=== PATIENT | male | born 1965 ===

== ENCOUNTER 2019-02-05 18:57 | Emergency (ER) | payer OTHER ==
--- NOTE | 2019-02-05 19:44 | ER Document Report ---
ED Medical Screen (RME) - General Chief Complaint: General Weakness Stated Complaint: SLOW HEART RATE Time Seen by Provider: 02/05/19 19:36 Primary Care Provider: MARY GRACIA MD [Primary Care Provider] - Follow up as needed Mode of Arrival: Ambulatory Information source: Patient Notes: 53-year-old male presents emergency department with complaints of feeling extrem shelia tired. Also reports low heart rate. Patient reports his heart rate is always low. Reports he has a cardiac history of one stent placement after an LAD blockage when he was 38 years old. Patient reports he has been tired since Monday. His chest pain shortness of breath. Denies fever vomiting diarrhea. I have greeted and performed a rapid initial assessment of this patient. A comprehensive ED assessment and evaluation of the patient, analysis of test results and completion of the medical decision making process will be conducted by additional ED providers. Dictation of this chart was performed using voice recognition software; therefore, there may be some unintended grammatical errors. TRAVEL OUTSIDE OF THE [place] IN LAST 30 DAYS: No - Related Data Allergies/Adverse Reactions: No Known Allergies Allergy (Unverified 02/05/19 19:38) Past Medical History - Social History Chew tobacco use (# tins/day): No Frequency of alcohol use: None Drug Abuse: None Physical Exam - Vital signs Vitals: Temp Pulse Resp BP Pulse Ox 97.9 F 52 L 16 149/81 H 100 02/05/19 19:21 02/05/19 19:21 02/05/19 19:21 02/05/19 19:21 02/05/19 19:21 Course - Vital Signs Vital signs: Temp Pulse Resp BP Pulse Ox 97.9 F 52 L 16 149/81 H 100 02/05/19 19:21 02/05/19 19:21 02/05/19 19:21 02/05/19 19:21 02/05/19 19:21 Doctor's Discharge - Discharge Referrals: MARY GRACIA MD [Primary Care Provider] - Follow up as needed
--- NOTE | 2019-02-05 20:19 | RADIOLOGY REPORT (SQ) ---
XR CHEST 2 VIEWS CLINICAL STATEMENT: low heart rate COMPARISON: None FINDINGS: Cardiomediastinal silhouette is within normal limits. There is no focal lung consolidation or pleural effusion. No evidence of pulmonary edema or pneumothorax. IMPRESSION: No acute cardiopulmonary disease.
[2019-02-05 20:49] LABS: ABSOLUTE EOSINOPHILS # (AUTO) 0.2 10^3/uL (0.0-0.6); ABSOLUTE LYMPHOCYTES (AUTO) 1.9 10^3/uL (0.5-4.7); ABSOLUTE MONOCYTES (AUTO) 0.7 10^3/uL (0.1-1.4); ABSOLUTE NEUT (AUTO) 3.1 10^3/uL (1.7-8.2); BASOPHILS % (AUTO) 0.8 % (0-2); EOSINOPHILS % (AUTO) 3.5 % (0-6); HEMATOCRIT 43.2 % (37.9-51.0); HEMOGLOBIN 14.8 g/dL (13.5-17.0); LYMPHOCYTES % (AUTO) 32.6 % (13-45); MEAN CORPUSCULAR HEMOGLOBIN 29.2 pg (27.0-33.4); MEAN CORPUSCULAR HGB CONC 34.2 g/dL (32.0-36.0); MEAN CORPUSCULAR VOLUME 85 fl (80-97); PLATELET COUNT 174 10^3/uL (150-450); RED BLOOD COUNT 5.06 10^6/uL (4.35-5.55); RED CELL DISTRIBUTION WIDTH 13.5 % (11.5-14.0); SEGMENTED NEUTROPHILS % (AUTO) 52.1 % (42-78); TOTAL CELLS COUNTED % (AUTO) 100 %; WHITE BLOOD COUNT 5.9 10^3/uL (4.0-10.5)
[2019-02-05 21:06] LABS: ALBUMIN 4.3 g/dL (3.5-5.0); ALKALINE PHOSPHATASE 60 U/L (38-126); ANION GAP 10 (5-19); ASPARTATE AMINO TRANSFERASE 29 U/L (17-59); BILIRUBIN,DIRECT 0.2 mg/dL (0.0-0.4); BILIRUBIN,TOTAL 0.7 mg/dL (0.2-1.3); BLOOD UREA NITROGEN 17 mg/dL (7-20); CALCIUM 9.1 mg/dL (8.4-10.2); CARBON DIOXIDE 32 mmol/L (22-30); CHLORIDE 102 mmol/L (98-107); CREATINE KINASE 144 U/L (55-170); GLUCOSE 88 mg/dL (75-110); POTASSIUM 3.4 mmol/L (3.6-5.0); TOTAL PROTEIN 7.1 g/dL (6.3-8.2)
[2019-02-05 21:59] LABS: APPEARANCE,URINE CLEAR; BILIRUBIN,URINE NEGATIVE (NEGATIVE); COLOR,URINE YELLOW; GLUCOSE, URINE NEGATIVE (NEGATIVE); KETONES,URINE NEGATIVE (NEGATIVE); LEUKOCYTE ESTERASE,URINE NEGATIVE (NEGATIVE); NITRITE,URINE NEGATIVE (NEGATIVE); PROTEIN,URINE NEGATIVE (NEGATIVE); URINE SPECIFIC GRAVITY 1.017; UROBILINOGEN,URINE NEGATIVE mg/dL (<2.0)
[2019-02-05 23:04] VITALS: BP 180/89
--- NOTE | 2019-02-05 23:30 | ER Document Report ---
ED Cardiac - General Chief Complaint: General Weakness Stated Complaint: SLOW HEART RATE Time Seen by Provider: 02/05/19 19:36 Primary Care Provider: MARY GRACIA MD [Primary Care Provider] - Follow up as needed Mode of Arrival: Ambulatory Information source: Patient TRAVEL OUTSIDE OF THE [place] IN LAST 30 DAYS: No - HPI Notes: Patient presents complaining of fatigue weakness and dizziness. He states he is also noticed that his heart rate has been low. He states he does exercise often but fatigues easily. He states that he has been on the same blood pressure medicines for about 5 years. He states he has had no chest pain. He states he has an occasional palpitation but he has had this for 15 to 20 years. He states he has had no cardiac evaluation in the last 4 years. No shortness of breath. No vomiting. His symptoms are worse with exertion and better with rest. No known radiation of symptoms. They have been mild to moderate. They have been intermittent. - Related Data Allergies/Adverse Reactions: No Known Allergies Allergy (Unverified 02/05/19 19:38) Past Medical History - General Information source: Patient - Social History Smoking Status: Never Smoker Chew tobacco use (# tins/day): No Frequency of alcohol use: None Drug Abuse: None Family History: Reviewed & Not Pertinent Patient has suicidal ideation: No Patient has homicidal ideation: No Review of Systems - Review of Systems Constitutional: Malaise, Weakness. denies: Chills, Fever Cardiovascular: Palpitations. denies: Chest pain Respiratory: denies: Cough, Short of breath -: Yes All other systems reviewed and negative Physical Exam - Vital signs Vitals: Temp Pulse Resp BP Pulse Ox 97.9 F 52 L 16 149/81 H 100 02/05/19 19:21 02/05/19 19:21 02/05/19 19:21 02/05/19 19:21 02/05/19 19:21 Interpretation: Bradycardic - General General appearance: Appears well, Alert - HEENT Head: Normocephalic, Atraumatic Eyes: Normal Pupils: PERRL - Respiratory Respiratory status: No respiratory distress Chest status: Nontender Breath sounds: Normal Chest palpation: Normal - Cardiovascular Rhythm: Bradycardia Heart sounds: Normal auscultation Murmur: No - Abdominal Inspection: Normal Distension: No distension Bowel sounds: Normal Tenderness: Nontender Organomegaly: No organomegaly - Back Back: Normal, Nontender - Extremities General upper extremity: Normal inspection, Nontender, Normal color, Normal ROM, Normal temperature General lower extremity: Normal inspection, Nontender, Normal color, Normal ROM, Normal temperature, Normal weight bearing. No: Cassandra's sign - Neurological Neuro grossly intact: Yes Cognition: Normal Orientation: AAOx4 [place] Coma Scale Eye Opening: Spontaneous [place] Coma Scale Verbal: Oriented [place] Coma Scale Motor: Obeys Commands [place] Coma Scale Total: 15 Speech: Normal Motor strength normal: LUE, RUE, LLE, RLE Sensory: Normal - Psychological Associated symptoms: Normal affect, Normal mood - Skin Skin Temperature: Warm Skin Moisture: Dry Skin Color: Normal Course - Re-evaluation Re-evalutation: 02/05/19 23:28 Patient complains of fatigue. He has a sinus bradycardia but otherwise no EKG changes are appreciated. Laboratories are unremarkable. Exam is also unremarkable. I believe that patient may be having unwanted side effects of his blood pressure medicine, Bystolic. I have advised him to cut his Bystolic in half and contact his primary care physician as soon as possible. He also asked that he be referred to a curber at [facility] [place]. I did call [facility] and obtain the curber supervisor car installations tonight and have referred the patient. - Vital Signs Vital signs: Temp Pulse Resp BP Pulse Ox 97.7 F 46 L 14 180/89 H 100 02/05/19 23:01 02/05/19 23:04 02/05/19 23:01 02/05/19 23:01 02/05/19 23:01 - Laboratory Result Diagrams: 02/05/19 20:15 02/05/19 20:15 Laboratory results interpreted by me: 02/05/19 20:15 Potassium 3.4 L Carbon Dioxide 32 H - Diagnostic Test Radiology reviewed: Image reviewed, Reports reviewed - EKG Interpretation by [facility] EKG shows normal: Sinus rhythm Rate: Bradycardia - 49 Rhythm: NSR [place]/QRS: Left axis deviation Discharge - Discharge Clinical Impression: Dizziness, Sinus bradycardia Condition: Stable Disposition: HOME, SELF-CARE Instructions: Beta Blockers ([facility]) Additional Instructions: Call Dr. Renzo Elder at as soon as possible to arrange an appointment or use the web site at [email or web address] to arrange and appointment. I also advise you lower or stop your bystolic and contact your primary physician as soon as possible to discuss your use of Bystolic. Referrals: MARY GRACIA MD [Primary Care Provider] - Follow up as needed
--- NOTE | 2019-02-06 11:25 | EKG REPORT ---
SEVERITY:- BORDERLINE ECG - SINUS BRADYCARDIA BORDERLINE LEFT AXIS DEVIATION BORDERLINE T WAVE ABNORMALITIES : Confirmed by: Alberto Paris 06-Feb-2019 11:24:55
== END 2019-02-05 23:44 | disposition home or self-care (01) ==
LOC: ER 18:57
DX: R00.1 Bradycardia, unspecified (principal); R53.1 Weakness; R53.83 Other fatigue; R42 Dizziness and giddiness; R00.2 Palpitations; Z79.899 Other long term (current) drug therapy
CPT/HCPCS: 36415; 71046; 80053; 81001; 82550; 84484; 85025; 93005; 93010; 99284